=== PATIENT | male | born 1965 | race Two or more races ===

== ENCOUNTER 2017-12-02 12:10 | Emergency (ER) | payer OTHER ==
[~2017-12-02] VITALS: Ht 175.3 cm; Wt 82.5 kg
[~2017-12-02 12:10] MED LIST: ALTOPREV20 MG PO; BACLOFEN10 MG PO; LANTUS100 UNIT/1 SUB-Q; LISINOPRIL10 MG PO; METFORMIN HCL1000 MG PO
[2017-12-02] MEDS ORDERED: SODIUM BICARBO650 MG PO (12:39)
[2017-12-02] MEDS ORDERED: NORVASC10 MG PO (12:39)
[2017-12-02] MEDS ORDERED: LOVASTATIN20 MG PO (12:40)
[2017-12-02] MEDS ORDERED: DOXAZOSIN MESYLA1 MG PO (12:41)
[2017-12-02] MEDS ORDERED: RENAGEL800 MG PO (12:41)
[2017-12-02] MEDS ORDERED: METOPROLOL TAR100 MG PO (12:42)
[2017-12-02] MEDS ORDERED: TORSEMIDE20 MG PO (12:42)
--- NOTE | 2017-12-02 19:50 | EKG ---
[facility] [address] [facility] [place] [address] Signed Normal sinus rhythm Normal ECG No previous ECGs available Confirmed by RADHA DUONG MD ([id number]) on 12/02/2017 7:49:45 PM Electronically Signed By: RADHA DUONG MD 12/02/17 1950 PATIENT NAME: TARAH DONNELLYFE DE LA CRUZ Electrocardiogram DATE OF : 69 PHYSICIAN: RADHA DUONG MD REPORT #: [id number] REPORT IS CONFIDENTIAL AND NOT TO BE RELEASED WITHOUT AUTHORIZATION
== END 2017-12-02 16:34 | disposition home or self-care (01) ==
LOC: ED 12:10
DX: N18.9 Chronic kidney disease, unspecified (principal); D63.1 Anemia in chronic kidney disease; Z79.899 Other long term (current) drug therapy
CPT/HCPCS: 71045; 80053; 83735; 83880; 84484; 85025; 85379; 85610; 85730; 93005; 93010; 99284

== ENCOUNTER 2020-08-29 15:02 | Emergency (ER) | payer MEDICARE, OTHER ==
[~2020-08-29] VITALS: Ht 175.3 cm; Wt 82.6 kg
[~2020-08-29 15:02] MED LIST changes: +DOXAZOSIN MESYLA1 MG PO; +LOVASTATIN20 MG PO; +METOPROLOL TAR100 MG PO; +NORVASC10 MG PO; +RENAGEL800 MG PO; +SODIUM BICARBO650 MG PO; +TORSEMIDE20 MG PO
[2020-08-29] MEDS ORDERED: CARVEDILOL25 MG PO (16:48)
[2020-08-29] MEDS ORDERED: CLONIDINE1 EAC2 TD (16:49)
== END 2020-08-29 18:23 | disposition home or self-care (01) ==
LOC: ED 15:02
DX: M54.14 Radiculopathy, thoracic region (principal); M62.830 Muscle spasm of back; Z79.899 Other long term (current) drug therapy
CPT/HCPCS: 99283

== ENCOUNTER 2021-07-07 19:21 | Emergency (ER) | payer MEDICARE, OTHER ==
[~2021-07-07] VITALS: Ht 175.3 cm; Wt 83.9 kg
[~2021-07-07 19:21] MED LIST changes: +CARVEDILOL25 MG PO; +CLONIDINE1 EAC2 TD
--- OUTSIDE RECORDS SUMMARY | 2021-07-07 19:24 | XMS ---
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 [place] VISIT COUNT (12 MO.) [address] TOTAL 4 NOTE: Visits indicate total known visits. ED/UCC VISIT TRACKING (12 MO.) 07/07/2021 19:22 [facility] TYPE: Emergency COMPLAINT: - ABDOMINAL PAIN 07/05/2021 12:54 [facility] [place] TYPE: Emergency DIAGNOSES: - Shortness of breath - SHORTNESS OF BREATH 06/28/2021 11:18 [facility] [place] TYPE: Emergency DIAGNOSES: - Swimmer's ear, left ear - EAR PAIN JAW PAIN - Other visual disturbances 08/29/2020 15:03 [facility] [place] TYPE: Emergency COMPLAINT: - PAIN ON LEFT SIDE DIAGNOSES: - Radiculopathy, thoracic region - Muscle spasm of back - Pain in thoracic spine - Other emt intermediate (current) drug therapy INPATIENT VISIT TRACKING (12 MO.) No inpatient visits to display in this time frame [email or web address]
--- NOTE | 2021-07-09 20:36 | EKG ---
[facility] [address] [facility] [place], [place] [address] Signed Normal sinus rhythm Abnormal ECG When compared with ECG of 02-DEC-2017 13:23, T wave amplitude has decreased in Lateral leads QT has lengthened Confirmed by ROSALIE HARVEY DO ([id number]) on 07/09/2021 8:35:56 PM Electronically Signed By: ROSALIE HARVEY DO 07/09/212035 PATIENT NAME: FE JACKSON Electrocardiogram DATE OF : 69 PHYSICIAN: ROSALIE HARVEY DO REPORT #: [id number] REPORT IS CONFIDENTIAL AND NOT TO BE RELEASED WITHOUT AUTHORIZATION
== END 2021-07-07 23:31 | disposition home or self-care (01) ==
LOC: ED 19:21
DX: R07.9 Chest pain, unspecified (principal); E78.5 Hyperlipidemia, unspecified; E11.9 Type 2 diabetes mellitus without complications; Z79.899 Other long term (current) drug therapy; Z99.2 Dependence on renal dialysis
CPT/HCPCS: 80053; 81001; 83690; 84484; 85025; 93005; 93010; 99285-25

== ENCOUNTER 2021-08-01 13:24 | Emergency (ER) | payer MEDICARE, OTHER ==
[~2021-08-01] VITALS: Ht 175.3 cm; Wt 83.9 kg
--- OUTSIDE RECORDS SUMMARY | 2021-08-01 13:42 | XMS ---
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 E.D. VISIT COUNT (12 MO.) [address] 1 [facility] 3 [facility] TOTAL 9 NOTE: Visits indicate total known visits. ED/UCC VISIT TRACKING (12 MO.) 08/01/2021 13:25 [facility] TYPE: Emergency COMPLAINT: - CHEST TIGHTNESS, STOMACHE BURNING 07/30/2021 15:50 [facility] OR TYPE: Emergency COMPLAINT: - ANXIETY DIAGNOSES: - ANXIETY 07/21/2021 14:48 [facility] [place] TYPE: Emergency DIAGNOSES: - Hypokalemia - Strain of muscle and tendon of unspecified wall of thorax, initial encounter - Nausea - NOT FEELING WELL 07/15/2021 09:17 [facility] TYPE: Emergency DIAGNOSES: - Weakness - Otalgia, left ear - End stage renal disease - Anemia, unspecified - Dependence on renal dialysis [facility] DIAGNOSES: - lt ear pain,head/neck pain, lt side pain - Otalgia - Unspecified acute noninfective otitis externa, left ear 07/07/2021 19:22 [facility] TYPE: Emergency COMPLAINT: - ABDOMINAL PAIN DIAGNOSES: - Hyperlipidemia, unspecified - Type 2 diabetes mellitus without complications - Chest pain, unspecified - Dependence on renal dialysis - Upper abdominal pain, unspecified - Other jail (current) drug therapy [facility]2021 [email or web address] DIAGNOSES: - Shortness of breath - SHORTNESS OF BREATH 06/28/2021 11:18 [facility] DIAGNOSES: - Swimmer's ear, left ear - EAR PAIN JAW PAIN - Other visual disturbances 08/29/2020 15:03 [facility] TYPE: Emergency COMPLAINT: - PAIN ON LEFT SIDE DIAGNOSES: - Radiculopathy, thoracic region - Muscle spasm of back - Pain in thoracic spine - Other jail (current) drug therapy INPATIENT VISIT TRACKING (12 MO.) No inpatient visits to display in this time frame [email or web address]
[2021-08-01] MEDS ORDERED: ACETAZOLAMIDE250 MG PO (13:46)
[2021-08-01] MEDS ORDERED: ALLOPURINOL100 MG PO (13:46)
[2021-08-01] MEDS ORDERED: MINOXIDIL2.5 MG PO (13:47)
[2021-08-01] MEDS ORDERED: DIALYVITE 8000.8 M1 PO (13:48)
[2021-08-01] MEDS ORDERED: CLOTRIMAZOLE30 ML TOP (13:49)
[2021-08-01] MEDS ORDERED: OMEPRAZOLE20 MG PO (16:26)
--- NOTE | 2021-08-03 16:34 | EKG ---
[facility] [address] [facility] [place] [address] Signed Normal sinus rhythm Normal ECG When compared with ECG of 07-JUL-2021 20:27, No significant change was found Confirmed by RADHA DUONG MD ([id number]) on 08/03/2021 4:34:48 PM Electronically Signed By: RADHA DUONG MD 08/03/21 1634 PATIENT NAME: FE JACKSON Electrocardiogram DATE OF : 69 PHYSICIAN: RADHA DUONG MD REPORT #: [id number] REPORT IS CONFIDENTIAL AND NOT TO BE RELEASED WITHOUT AUTHORIZATION
== END 2021-08-01 17:11 | disposition home or self-care (01) ==
LOC: ED 13:24
DX: K21.9 Gastro-esophageal reflux disease without esophagitis (principal); E78.5 Hyperlipidemia, unspecified; E11.9 Type 2 diabetes mellitus without complications; Z79.899 Other long term (current) drug therapy
CPT/HCPCS: 71045; 80048; 84484; 85025; 93005; 93010; 99285-25; U0003

== ENCOUNTER 2022-12-17 19:50 | Emergency (ER) | payer MEDICARE, OTHER ==
[~2022-12-17] VITALS: Ht 175.3 cm; Wt 81.7 kg
[~2022-12-17 19:50] MED LIST changes: +ACETAZOLAMIDE250 MG PO; +ALLOPURINOL100 MG PO; +CLOTRIMAZOLE30 ML TOP; +DIALYVITE 8000.8 M1 PO; +MINOXIDIL2.5 MG PO; +OMEPRAZOLE20 MG PO
[2022-12-17 22:18] VITALS: BP 114/75
== END 2022-12-17 22:19 | disposition home or self-care (01) ==
LOC: ED 19:50
DX: G89.29 Other chronic pain (principal); M54.6 Pain in thoracic spine; M54.2 Cervicalgia; E78.5 Hyperlipidemia, unspecified; E11.9 Type 2 diabetes mellitus without complications; Z79.899 Other long term (current) drug therapy
CPT/HCPCS: 71046; 99283

== ENCOUNTER 2024-10-11 14:01 | Emergency (ER) | payer MEDICARE, OTHER ==
[~2024-10-11] VITALS: Ht 175.3 cm; Wt 84.6 kg
--- OUTSIDE RECORDS SUMMARY | 2024-10-11 14:07 | XMS ---
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 [place] VISIT COUNT (12 MO.) [address] [place] [id number] [facility] [place] TOTAL 4 NOTE: Visits indicate total known visits. ED/UCC VISIT TRACKING (12 MO.) 10/11/2024 14:02 [facility] TYPE: Emergency COMPLAINT: - COUGH, CHEST HURTS 09/14/2024 14:38 [facility] TYPE: Emergency DIAGNOSES: - Chest pain, unspecified - Pleurodynia - BACK PAIN 05/24/2024 13:04 [facility] TYPE: Emergency DIAGNOSES: - Gastro-esophageal reflux disease with esophagitis, without bleeding - Other chest pain - CHEST PAIN 02/08/2024 10:06 [facility] TYPE: Emergency DIAGNOSES: - Chest pain, unspecified - Headache, unspecified - fatigue INPATIENT VISIT TRACKING (12 MO.) No inpatient visits to display in this time frame [email or web address]
[2024-10-11 15:27] LABS: BASOPHILS 0.1 % (0-2); HEMATOCRIT 43.2 % (35.0-50.0); HEMOGLOBIN 14.9 g/dL (12.0-18.0); LYMPHOCYTES 12.7 % (24-44); MCH 31.8 (27-36); MCHC 34.6 g/dl (30-36); MCV 91.9 fl (81-99); MONOCYTES 9.7 % (0-12); NEUTROPHILS 76.5 % (39-80); PLATELET COUNT 170 K/uL (140-440); RDW 13.1 (10.5-15.0)
[2024-10-11] MEDS ORDERED: HYDROmorphone HCL 1 MG/ML SYR IV PRN (15:30)
[2024-10-11] MEDS ORDERED: SODIUM CHLORIDE 0.9% 500 ML IV ONE (15:30)
[2024-10-11 15:41] LABS: ALBUMIN 4.3 g/dL (3.4-5.0); ALBUMIN/GLOBULIN RATIO 1.3 (1.1-2.4); ANION GAP 11.6 (7-21); BILIRUBIN, TOTAL 0.5 mg/dL (0.2-1.0); BUN/CREATININE RATIO 32.07 (6.0-28.6); CALCIUM 9.3 mg/dL (8.5-10.1); CREATININE, SERUM 1.59 mg/dL (0.70-1.30); POTASSIUM 4.6 mmol/L (3.5-5.1); PROTEIN, TOTAL 7.6 g/dL (6.4-8.2)
[2024-10-11 16:30] LABS: ERYTHROCYTE SEDIMENTATION RATE 5
[2024-10-11] MEDS ORDERED: METHOCARBAMOL500 MG PO (16:52)
[2024-10-11] MEDS ORDERED: methocarbamoL 500 MG TABLET PO ONE (17:00)
[2024-10-11 17:15] VITALS: BP 136/81
== END 2024-10-11 17:15 | disposition home or self-care (01) ==
LOC: ED 14:01
PROVIDERS: Emergency Medicine
DX: M54.6 Pain in thoracic spine (principal); E78.5 Hyperlipidemia, unspecified; E11.22 Type 2 diabetes mellitus with diabetic chronic kidney disease; N18.6 End stage renal disease; Z99.2 Dependence on renal dialysis; Z94.0 Kidney transplant status; Z79.899 Other long term (current) drug therapy
CPT/HCPCS: 36415; 71260; 80053; 85025; 85651; 86140; 99284-25; J1171; J7040; Q9967